=== PATIENT | female | born 1960 | race Caucasian/White ===

== ENCOUNTER 2019-08-21 20:15 | Emergency (ER) | payer OTHER, SELFPAY ==
--- NOTE | ~2019-08-21 | XR_ITS ---
EXAMINATION: XR knee RT 3V EXAM DATE: 08/21/2019 21:05 INDICATION: No known recent injury provided at this time. Pain of the right knee. Crepitus. TECHNIQUE: Three projections of the right knee. Comparison is made to prior examination from 6. FINDINGS: No evidence osteochondral defect or joint body in the right knee joint. Small sized supr apatellar enthesopathy. There is mild tricompartmental primary osteoarthritis. No joint effusion. Th ere are no acute fractures or dislocations identified. There is no subcutaneous gas. The soft tissu e is unremarkable. There are no radiopaque foreign bodies. Compared to 2016, slight interval progr ession in degenerative changes. IMPRESSION: Mild right knee osteoarthritis. Reviewed, dictated and finalized at location A.
--- NOTE | 2019-08-21 20:32 | ED.LOWEXIN ---
HPI - Extremity Injury (Lower) General Chief Complaint: Extremity Injury, Lower Stated Complaint: r knee pain Time Seen by Provider: 08/21/19 20:43 Source: patient and family Mode of arrival: ambulatory Limitations: no limitations History of Present Illness HPI Narrative: 59-year-old woman comes in today complaining of right knee pain that started about 3:00 p.m. today. She states that she was walking down some steps when she had a grinding sensation, a loud pop and immediate pain of her right knee. She denies falling. Her pain has persisted and she has been unable to bear weight since. She has a history of osteoarthritis of her knees And a history of rheumatoid arthritis. complaint: knee injury Onset (ago): hour(s) (5) Injury: Right: knee Place: home Severity: severe Relieving factors: rest Exacerbating factors: weight bearing Context: walking Associated symptoms: snap/pop sensation Related Data Home Medications Medication Instructions Recorded Confirmed diclofenac sodium 75 mg PO BID 08/21/19 08/21/19 escitalopram oxalate 5 mg PO DAILY 08/21/19 08/21/19 gabapentin 300 mg PO TID 08/21/19 08/21/19 hydroxychloroquine [Plaquenil] 200 mg PO BID 08/21/19 08/21/19 latanoprost 1 drp OPHTHALMIC (EYE) DAILY 08/21/19 08/21/19 lisinopril-hydrochlorothiazide 1 tablet PO DAILY 08/21/19 08/21/19 metformin 1,000 mg PO BID 08/21/19 08/21/19 ranitidine HCl 300 mg PO HS 08/21/19 08/21/19 tramadol 50 mg PO HS 08/21/19 08/21/19 Allergies Allergy/AdvReac Type Severity Reaction Status Date / Time cephalexin [Keflex] Allergy Intermediate Verified 09/11/13 09:57 Cephalosporins Allergy Intermediate Verified 09/11/13 09:57 Review of Systems Constitutional: Constitutional: Denies chills and Denies fever(s) Eyes: Eyes: Denies change in vision and Denies photophobia ENT: Denies dysphagia, Denies nasal congestion and Denies sore throat Cardiovascular: Cardiovascular: Denies chest pain and Denies radiating jaw, neck or arm pain Respiratory: Respiratory: Denies cough and Denies dyspnea Gastrointestinal: Gastrointestinal: Denies abdominal pain, Denies nausea and Denies vomiting Neurologic: Denies vertigo, Denies dizziness, Denies syncope and Denies focal weakness Psychiatric: Psychiatric: Denies anxiety and Denies depression Hematologic/Lymphatic: Hematologic/Lymphatic: Denies easy bleeding and Denies easy bruising Allergic/Immunologic: Allergic/Immunologic: Denies lip swelling and Denies wheezing [facility] Past Medical History Medical History Diverticulitis Fibromyalgia GERD (gastroesophageal reflux disease) Glaucoma Hypertension Osteoarthritis Osteoporosis Rheumatoid arthritis Type 2 diabetes mellitus Surgical History Surgical History History of bladder surgery History of colon resection Social History Social History Smoking status: Never smoker Exam Const: General: healthy appearing and alert Nutritional Appearance: obese Orientation/consciousness: patient oriented x3 Other: moderate acute distress at rest Resp: Effort & Inspection: normal respiratory effort and not labored Auscultation: clear to auscultation bilaterally, no rales, no rhonchi and no wheezes Cardio: Rate: regular rate Rhythm: regular rhythm Heart sounds: no murmurs Skin: General skin exam: normal color, no jaundice and no pallor Rashes: no rashes Neuro: General: patient oriented x3, moves all extremities, no focal motor deficits and CN's II-XI intact bilaterally Extrem: General: no clubbing, cyanosis or edema Other: Perhaps mild effusion on the right knee. There is crepitus even with minor flexion and extension. limited flexion. Normal active extension. tenderness mostly on the medial and lateral anterior joint line. Patient was too tender to fully assess for la
[2019-08-21 20:35] VITALS: BP 138/57; PULSE 80; RESP 18; TEMP 37; O2SAT 95
== END 2019-08-21 21:48 | disposition home or self-care (01) ==
PROVIDERS: Emergency Provider Emergency Medicine; PCP Internal Medicine
DX: S89.91XA Unspecified injury of right lower leg, initial encounter (principal)
CPT/HCPCS: 73562; 99282; 99283

== ENCOUNTER 2019-11-20 14:00 | Outpatient (RCR) | payer OTHER, SELFPAY ==
--- NOTE | 2019-11-20 15:07 | PTOPEVAL ---
Thank you for referring Nancie Montemayor to [facility]. Please review, sign, date and return this plan of care JENSEN. I agree with and certify that the following plan of care is medically necessary. Referring Physician Date Admitting Provider: Attending Provider: Stephan Castillo MD Referring Provider: *PT Outpatient Evaluation Start: 11/20/19 14:10 Freq: Status: Active Protocol: Document 11/20/19 14:15 J (Rec: 11/20/19 14:57 [facility] [id number]) Therapy Assessment Status Assessment Status Assessment Status Evaluation Outpatient Past Medical History Cardiovascular History Hx Hypercholesterolemia Yes Hx Hypertension Yes Gastrointestinal History Hx Bowel Surgery Yes: colon resection Hx Diverticulitis Yes Genitourinary History Hx Bladder Surgery Yes Musculoskeletal History Hx Fibromyalgia Yes Hx Osteoporosis Yes Hx Rheumatoid Arthritis Yes Endocrine History Hx Diabetes Yes Evaluation Information Problem Diagnosis R knee pain Onset 08/31/19 Additional Evaluation Detail LEFS = 95% functionally declined. Subjective Information patient reports she injured Query Text:As Reported By Patient/ her R knee several months ago. Family she reports she stepped off a concrete stoop and injuired her knee. she reports she has had x-rays but has had no mri as of this date due to the covid pandemic. she reports the knee has been getting worse. she reports she had a steriod injection in august, but nothing since then. she reports she has increased swelling and pain. she reports the knee feels unstable. she reports the knee feels like it will slide backwards. she reports she felt a pop when she initially injured to the R knee. she reports the knee will swell from time to time. she reports increased pain with sit to stand transfers, walking, weight bearing, and stairs. Prior Level of Function Comments Additional Prior Level of Function prior to injury, no issues Comments
--- NOTE | 2019-12-27 15:22 | PTOPEVAL ---
Thank you for referring Nancie Montemayor to [facility]. Please review, sign, date and return this plan of care JENSEN. I agree with and certify that the following plan of care is medically necessary. Referring Physician Date Admitting Provider: Attending Provider: Stephan Castillo MD Referring Provider: *PT Outpatient Evaluation Start: 11/20/19 14:10 Freq: Status: Active Protocol: Document 12/27/19 15:11 [facility] (Rec: 12/27/19 15:20 [facility] [id number]) Therapy Assessment Status Assessment Status Assessment Status Discharge Outpatient Past Medical History Cardiovascular History Hx Hypercholesterolemia Yes Hx Hypertension Yes Gastrointestinal History Hx Bowel Surgery Yes: colon resection Hx Diverticulitis Yes Genitourinary History Hx Bladder Surgery Yes Musculoskeletal History Hx Fibromyalgia Yes Hx Osteoporosis Yes Hx Rheumatoid Arthritis Yes Endocrine History Hx Diabetes Yes Evaluation Information Problem Diagnosis R knee pain Additional Evaluation Detail LEFFS = 86% functionally declined Subjective Information patient reports she feels Query Text:As Reported By Patient/ sore again this date, but Family better than she did about a week ago. she reports her pain still fluctuates between a 7- 10/10. she reports she feels like her knee is more swollen and tight. Pain Assessment Timing of Pain Assessment Timing of Pain Assessment Assessment Pain Scale Pain Scale Used Numeric (1 - 10) Self Report Pain Assessment Right Knee(s) Reported Pain Level 7 Pain Description Sharp,Soreness,Tightness Greatest Pain Intensity 10 Pain Score Pain Score 7: Self Report Lower Extremity Range of Motion Knee Range of Motion Right Knee Flexion Range of Motion - Active 100 Knee Flexion Range of Motion - Passive -2 Knee Range of Motion Comments increased pain in the R knee and hip with PROM knee flexion to end rom with paint compensation/body shifting. Lower Extremity Muscle Strength Testing Hip Strength Right Hip Flexion Strength 4- Good - Knee Strength Right Knee Flexion Strength 4- Good - Knee Extension Strength 4 Good Muscle Length Testing Muscle Length Testing Left Hamstring Length 10 Query Text:(90 - 90 Position) Right Hamstring Length 20 Query Text:(90 - 90 Position) Palpati
== END 2019-12-27 17:11 | disposition home or self-care (01) ==
LOC: CHSPT 14:00
PROVIDERS: PCP Internal Medicine; Visit Provider Internal Medicine
DX: M25.561 Pain in right knee (principal)
CPT/HCPCS: 97014; 97016; 97110; 97140; 97161; G0283

== ENCOUNTER 2020-05-27 14:31 | Outpatient (CLI) | payer OTHER, SELFPAY ==
--- NOTE | ~2020-05-27 | MM_ITS ---
EXAMINATION: MM screening [facility] BI w lorrie HISTORY: Screening mammogram TECHNIQUE: Craniocaudal and mediolateral oblique 3-D tomosynthesis images were obtained and synthetic 2-D images were generated. CAD analysis was submitted and interpreted. COMPARISON: 05/23/2019, 02/17/2012, 02/19/2013, 02/21/2014 BREAST PARENCHYMAL COMPOSITION: There are scattered areas of fibroglandular density. FINDINGS: Scattered benign-appearing calcifications are present. There is no evidence of suspicious m ass, calcification, or architectural distortion to suggest malignancy in either breast. There has bee n no suspicious interval change. IMPRESSION: 1. No mammographic evidence of malignancy. 2. Recommend routine screening mammography in one year. BI-RADS Category 2: Benign finding(s). Reviewed, dictated and finalized at location A. STOCK NUTRITION TERRITORY MANAGER
== END 2020-05-27 14:32 | disposition home or self-care (01) ==
LOC: CHSIMG 14:33
PROVIDERS: PCP Internal Medicine; Visit Provider Obstetrics & Gynecology
DX: Z12.31 Encounter for screening mammogram for malignant neoplasm of breast (principal)
CPT/HCPCS: 77063; 77067

== ENCOUNTER 2020-09-02 12:02 | Emergency (ER) | payer OTHER, SELFPAY ==
--- NOTE | ~2020-09-02 | XR_ITS ---
XR hand RT min 3V 09/02/2020 12:41 INDICATION: Right hand pain after trauma. Rheumatoid arthritis. PROCEDURE: 3 views right hand COMPARISON: No prior studies for comparison. FINDINGS: Fracture, dislocation or subluxation is not identified. There is mild polyarticular osteoar thritis. No erosive changes. The soft tissues appear within normal limits. No foreign bodies are inocencio ntified. IMPRESSION: 1: NO ACUTE BONE OR JOINT ABNORMALITY IDENTIFIED. Reviewed, dictated and finalized at location A.
--- NOTE | 2020-09-02 12:29 | ED.UPPEXIN ---
HPI - Extremity Injury (Upper) General Chief Complaint: Extremity Injury, Upper Stated Complaint: hand in car door Time Seen by Provider: 09/02/20 12:25 Source: patient Mode of arrival: ambulatory Limitations: no limitations History of Present Illness HPI narrative: Patient comes in because she says she just closed her hand in the car door. She comes in with right hand elevated. She complains of pain moderately severe, sharp, throbbing, ongoing in right hand. Nothing has made this better. The most severe pain is in her index finger where it seems she had the bulk of the force that hit her hand. complaint: injury to: right Other injuries: none Handedness: right Place: home Severity: moderate Severity scale (1-10): 7 Relieving factors: other (elevation) Associated symptoms: denies other symptoms Treatments prior to arrival: cold therapy Related Data Home Medications Medication Instructions Recorded Confirmed diclofenac sodium 75 mg PO BID 08/21/19 08/21/19 escitalopram oxalate 5 mg PO DAILY 08/21/19 08/21/19 gabapentin 300 mg PO TID 08/21/19 08/21/19 hydroxychloroquine [Plaquenil] 200 mg PO BID 08/21/19 08/21/19 latanoprost 1 drp OPHTHALMIC (EYE) DAILY 08/21/19 08/21/19 lisinopril-hydrochlorothiazide 1 tablet PO DAILY 08/21/19 08/21/19 metformin 1,000 mg PO BID 08/21/19 08/21/19 tramadol 50 mg PO HS 08/21/19 08/21/19 Allergies Allergy/AdvReac Type Severity Reaction Status Date / Time cephalexin [Keflex] Allergy Intermediate Anaphylaxis Verified 09/02/20 13:01 Cephalosporins Allergy Intermediate Anaphylaxis Verified 09/02/20 13:01 Review of Systems Constitutional: Constitutional: Reports no additional constitutional complaints Eyes: Eyes: Reports no additional eye complaints ENT: Reports system reviewed and no additional complaints, except as documented Cardiovascular: Cardiovascular: Reports no additional cardiovascular complaints Respiratory: Respiratory: Reports no additional respiratory complaints Gastrointestinal: Gastrointestinal: Reports no additional gastrointestinal complaints Genitourinary: Genitourinary: Reports no additional female genitourinary complaints Musculoskeletal: Musculoskeletal: Reports no additional musculoskeletal complaints Integumentary/Breasts: Skin/Breast: Reports system reviewed and no additional complaints, except as docu Neurologic: Reports system reviewed and no additional complaints, except as documented Psychiatric: Psychiatric: Reports no additional psychiatric complaints Endocrine: Endocrine: Reports no additional endocrine complaints Hematologic/Lymphatic: Hematologic/Lymphatic: Reports no additional hematologic/lymphatic complaints Allergic/Immunologic: Allergic/Immunologic: Reports no additional allergic/immunologic complaints [facility] Past Medical History Medical History (Updated 09/02/20 @ 12:55 by Juan Carlos Miramontes MD) Diverticulitis Fibromyalgia GERD (gastroesophageal reflux disease) Glaucoma Hypertension Osteoarthritis Osteoporosis Rheumatoid arthritis Type 2 diabetes mellitus Surgical History Surgical History History of bladder surgery History of colon resection Family History Family History (Updated 09/02/20 @ 12:50 by Juan Carlos Miramontes MD) Mother CAD (coronary artery disease) Diabetes mellitus Osteoarthritis Social History Social History (Updated 09/02/20 @ 12:52 by Juan Carlos Miramontes MD) Smoking status: Never smoker Alcohol use details: minimal rare alcohol use Substance use: current Substance use type: marijuana Other substance usage details: says marijuana helps joint pain Gender identity (if verbalized by the patient): Female Exam Const: General: no acute distress HENMT: Head: normal to inspection Ears: external ears normal and TM's normal bilaterally General nose exam: Normal external nose present Face and sinus: normal facial exam Mouth: Yes Normal oral and pa
[2020-09-02 12:44] VITALS: BP 118/78; PULSE 76; RESP 20; TEMP 36.4; O2SAT 99
[2020-09-02 13:18] VITALS: BP 126/67; PULSE 76; RESP 20; TEMP 36.7; O2SAT 97
== END 2020-09-02 13:22 | disposition home or self-care (01) ==
PROVIDERS: Emergency Provider Emergency Medicine; PCP Internal Medicine
DX: M79.641 Pain in right hand (principal)
CPT/HCPCS: 29130; 73130; 99282; 99283

== ENCOUNTER 2020-09-26 10:51 | Outpatient (CLI) | payer OTHER, SELFPAY ==
[2020-09-26 12:01] LABS: SARS-CoV-2 RNA PCR Negative (Negative)
== END 2020-09-26 10:52 | disposition home or self-care (01) ==
LOC: CHSLAB 10:54
PROVIDERS: PCP Internal Medicine; Visit Provider Internal Medicine
DX: Z20.822 Contact with and (suspected) exposure to COVID-19 (principal)
CPT/HCPCS: C9803; U0003; U0005

== ENCOUNTER 2021-04-22 10:07 | Outpatient (CLI) | payer OTHER, SELFPAY ==
--- NOTE | ~2021-04-22 | US_ITS ---
EXAMINATION: US pelvic complete w TV DATE: 04/22/2021 10:39 INDICATION: Hirsutism. Hysterectomy in 1990. Comparison:No prior studies for comparison. TECHNIQUE: Multiple transabdominal and endovaginal sonographic images of the pelvis performed. FINDINGS: The uterus is surgically absent. The ovaries are not visualized, although no adnexal masses or fluid collections are identified. There is no free fluid in the pelvis. There are no abnormal masses seen on either side. IMPRESSION: 1. Unremarkable pelvic ultrasound post hysterectomy. Reviewed, dictated and finalized at location A. ING ADMINISTRATOR
== END 2021-04-22 10:08 | disposition home or self-care (01) ==
LOC: CHSIMG 10:09
PROVIDERS: PCP Internal Medicine; Visit Provider Obstetrics & Gynecology
DX: L68.0 Hirsutism (principal); Z01.419 Encounter for gynecological examination (general) (routine) without abnormal findings
CPT/HCPCS: 76830; 76856

== ENCOUNTER 2021-05-29 11:57 | Outpatient (CLI) | payer OTHER, SELFPAY ==
--- NOTE | ~2021-05-29 | MM_ITS ---
EXAMINATION: MM screening [facility] BI w lorrie HISTORY: Screening TECHNIQUE: Craniocaudal and mediolateral oblique 3-D tomosynthesis images were obtained and synthetic 2-D images were generated. CAD analysis was submitted and interpreted. COMPARISON: Comparison to multiple prior studies sequentially, with oldest reviewed study dated 03/14. BREAST PARENCHYMAL COMPOSITION: There are scattered areas of fibroglandular density. FINDINGS: There is no evidence of suspicious mass, calcification, or architectural distortion to sugg est malignancy in either breast. There has been no suspicious interval change. IMPRESSION: 1. No mammographic evidence of malignancy. 2. Recommend routine screening mammography in one year. BI-RADS Category 1: Negative Reviewed, dictated and finalized at location A. R D INTERN
== END 2021-05-29 11:58 | disposition home or self-care (01) ==
LOC: CHSIMG 11:57
PROVIDERS: PCP Internal Medicine; Visit Provider Obstetrics & Gynecology
DX: Z12.31 Encounter for screening mammogram for malignant neoplasm of breast (principal)
CPT/HCPCS: 77063; 77067

== ENCOUNTER 2021-07-01 12:33 | Outpatient (CLI) | payer OTHER, SELFPAY ==
--- NOTE | 2021-07-01 12:45 | PC.NURSE ---
Pt to room 201 amb. A&Ox3. Complains of feeling tired. NPC noted. Antibody infusion plan of care explained. Pt read and signed the consent form. Has no questions or concerns. Oriented to room. Call bassett in reach. Reminded to call with needs.
[2021-07-01] MEDS: FAMOTIDINE 20 MG TABLET PO (12:58)
[2021-07-01] MEDS: ACETAMINOPHEN 325 MG TABLET 650 MG PO (12:58)
[2021-07-01] MEDS: diphenhydrAMINE HCl CAP 25 MG CAPSULE PO (12:58)
[2021-07-01 13:12] VITALS: BP 125/76; PULSE 71; RESP 20; TEMP 36.4; O2SAT 98
--- NOTE | 2021-07-01 13:57 | PC.NURSE ---
Pt has no questions or complaints. Discharged to home ambulatory with daughter.
== END 2021-07-01 12:34 | disposition home or self-care (01) ==
LOC: CHSTREATRM 12:37
PROVIDERS: PCP Internal Medicine; Visit Provider Internal Medicine
DX: U07.1 COVID-19 (principal); I10 Essential (primary) hypertension; E11.9 Type 2 diabetes mellitus without complications
CPT/HCPCS: A9270; M0245; Q0247

== ENCOUNTER 2021-09-23 12:30 | Emergency (ER) | payer OTHER, SELFPAY ==
--- NOTE | ~2021-09-23 | CT_ITS ---
CT OF pelvis EXAMINATION: CT pelvis wo con DATE: 09/23/2021 13:54 INDICATION: Fall, right hip pain TECHNIQUE: Computed tomography (CT) of the right hip was performed without intravenous contrast. Auto mated exposure control and iterative reconstruction technique were employed. The dose-length product was 896.96 mGy-cm. COMPARISON: CT abdomen and pelvis 08/25/2017 FINDINGS: Limitations: None Bones: Degenerative disc and facet disease in the lower lumbar spine. Bilateral degenerative change i n the SI joints, right greater than left. Mild bilateral hip osteoarthritis. Soft Tissues:Fat-containing midline ventral abdominal hernia. Uncomplicated appearing rectosigmoid no fracture or dislocation. No lytic or blastic lesion. Uterus is likely surgically absent. Fluid: No significant fluid within the joint capsule or surrounding bursal spaces. IMPRESSION: No acute fracture or dislocation in the pelvis. Reviewed, dictated and finalized at location K.
--- NOTE | ~2021-09-23 | XR_ITS ---
EXAMINATION: XR ankle RT min 3V DATE: 09/23/2021 13:57 INDICATION: Right ankle pain. Fall. TECHNIQUE: 4 views of right ankle were obtained. COMPARISON: None. FINDINGS: Bone alignment is normal. There is heterotopic ossification distal to medial malleolus. The re is mild midfoot osteoarthritis. There are enthesophytes at the posterior and plantar aspects of ca lcaneal tuberosity. Ankle soft tissue swelling is noted. IMPRESSION: 1. Heterotopic ossification distal to medial malleolus, which may be a chronic finding or less likely an acute avulsion fracture. 2. Mild midfoot osteoarthritis. Reviewed, dictated and finalized at location A.
--- NOTE | ~2021-09-23 | CT_ITS ---
EXAMINATION: CT brain wo con, CT cervical spine wo con EXAM DATE: 09/23/2021 13:55 (accession [id number]), 09/23/2021 13:53 (accession [id number]) INDICATION: Fall today, head injury/ lump to RT forehead. TECHNIQUE: Spiral CT of the head was performed without contrast. Axial, coronal and sagittal images were reviewed. Spiral CT of the cervical spine was performed without contrast. Axial images were rev iewed. Coronal and sagittal reformatted images were also reviewed. The dose-length product (DLP) fo r this examination was 605.33 (accession [id number]), 607.58 (accession [id number]) mGy-cm. The exposure was tailored according to patient size, and iterative reconstruction (ASIR) was used as additional dose reduction technique. There is no prior study for comparison. FINDINGS: HEAD CT: There is no acute intraparenchymal hemorrhage. No evidence of intraparenchymal brain mass l esion. No evidence of acute infarction. There is mild periventricular and subcortical hypodensity, n onspecific but probably related to small vessel ischemic disease. There is mild prominence of the s ulci and ventricles related to cerebral atrophy. There is no mass effect or midline shift. There i s no obstructive hydrocephalus suspected. There are no extra-axial collections. There are no acute calvarial fractures. Patient has had bilateral ocular lens surgery. Soft tissue is unremarkable. M ild bilateral ethmoid and left maxillary sinus mucoperiosteal thickening. CERVICAL CT: There is no evidence of acute cervical fracture. The odontoid process is intact. Pre-d ens space is normal. Prevertebral soft tissue is normal. There are no soft tissue abnormalities inocencio ntified. There is no disc space widening or traumatic vertebral body subluxation suspected. There is mild reversal of the normal cervical lordosis which may be positional or spasm. Moderate to severe disc disease at C5-6 and 6-7, moderate at the C4-5 and C7-T1 levels. There is moderate to severe cerv ical arthropathy. A detailed level by level evaluation of spondylosis can be added as addendum if req uested. IMPRESSION: 1. No acute intracranial findings or cervical fracture. 2. Mild age-related to cranial findings. 3. Reversal of cervical lordosis. 4. Moderate to severe cervical spondylosis. Reviewed, dictated and finalized at location B. IMPRESSION: 1. No acute intracranial findings or cervical fracture. 2. Mild age-related to cranial findings. 3. Reversal of cervical lordosis. 4. Moderate to severe cervical spondylosis.
--- NOTE | ~2021-09-23 | XR_ITS ---
EXAMINATION: XR knee RT 3V DATE: 09/23/2021 13:57 INDICATION: Right knee pain. Fall. TECHNIQUE: 3 views of right knee were obtained. COMPARISON: Right knee radiographs 08/21/2019 FINDINGS: Bone alignment is normal. No fracture. There is moderate osteoarthritis of medial and lagun[place] lofemoral compartments and mild osteoarthritis of lateral compartment. No knee joint effusion. IMPRESSION: 1. Moderate right knee osteoarthritis. Reviewed, dictated and finalized at location A.
[2021-09-23 12:40] VITALS: BP 155/79; PULSE 90; RESP 18; TEMP 36.5; O2SAT 97
--- NOTE | 2021-09-23 12:47 | ECG_ITS ---
Measurements Intervals [place] Rate: 73 P: 59 AL: 160 QRS: 29 QRSD: 92 T: 29 QT: 377 QTc: 416 Interpretive Statements SINUS RHYTHM NORMAL ECG NO PREVIOUS ECG AVAILABLE FOR COMPARISON Electronically Signed On 09-23-2021 15:41:32 CDT by Carter Alvarez M.D.
[2021-09-23 13:15] LABS: Basophils Absolute Auto 0.07 K/mm3 (0.00-0.10); Basophils Percent Auto 0.8 % (0.0-1.0); Eosinophils Absolute Auto 0.28 K/mm3 (0.02-0.50); Hematocrit 36.8 % (35.0-49.0); Hemoglobin 11.5 g/dL (12.0-15.0); Immature Granulocyte Absolute 0.11 K/mm3 (0.00-0.00); Immature Granulocyte Percent A 1.2 % (0.0-0.0); Lymphocytes Absolute Auto 1.39 K/mm3 (1.10-4.50); Lymphocytes Percent Auto 14.9 % (18.0-42.0); Mean Corpuscular HGB Conc 31.3 g/dL (32.0-36.0); Mean Corpuscular Hemoglobin 28.6 pg (27.0-31.0); Mean Corpuscular Volume 91.5 fL (78.0-102.0); Mean Platelet Volume 9.8 fl (9.2-11.8); Monocytes Absolute Auto 0.52 K/mm3 (0.10-0.90); Monocytes Percent Auto 5.6 % (2.0-11.0); Neutrophils Percent Auto 74.5 % (50.0-70.0); Platelet Count Result 289 K/mm3 (150-420); Red Blood Count 4.02 M/mm3 (4.20-5.40); Red Cell Distribution Width 13.9 % (11.6-14.4); White Blood Count 9.3 K/mm3 (4.8-10.8)
[2021-09-23 13:24] LABS: Add Urine Microscopic? YES; Appearance Urine Clear (Clear); Bilirubin Urine Negative (Negative); Blood Urine Negative (Negative); Color Urine Light Yellow (Yellow); Glucose Urine UA Trace (Negative); Ketones Urine Negative (Negative); Leukocyte Esterase Ur Negative (Negative); Nitrate Urine Negative (Negative); Protein Urine Negative (Negative); Urobilinogen Urine 0.2 mg/dL (0.2-1.0)
[2021-09-23 13:29] LABS: RBC Urine 0-2 /hpf (0-2); Squamous Epithelial Cell Urine Rare /hpf (Few); WBC Urine 0-3 /hpf (0-3)
[2021-09-23 13:30] LABS: Bacteria Urine None seen /hpf
[2021-09-23 13:31] LABS: Alanine Aminotransferase 25 U/L (14-59); Albumin Level 3.2 g/dL (3.4-5.0); Alkaline Phosphatase 79 U/L (46-116); Anion Gap 8 mmol/L (8-16); Aspartate Amino Transferase 16 U/L (15-37); Bilirubin,Total 0.3 mg/dL (0.00-1.00); Blood Urea Nitrogen 17 mg/dL (7-18); Calcium 8.8 mg/dL (8.5-10.1); Carbon Dioxide 27 mmol/L (21-32); Chloride 102 mmol/L (98-108); Estimated Glomerular Filt Rate 60; Glucose 209 mg/dL (70-99); Osmolality Calculated 291 mOsm/kg (285-295); Potassium 4.4 mmol/L (3.5-5.1); Sodium 137 mmol/L (136-145); Total Protein 6.9 g/dL (6.4-8.2)
[2021-09-23] MEDS: KETOROLAC (*BKC) 60 MG/2 ML VIAL IM (14:06)
--- NOTE | 2021-09-23 14:38 | ED.FALL ---
HPI - Fall General Chief Complaint: Fall Stated Complaint: Head pain/knee pain/Ankle pain Time Seen by Provider: 09/23/21 12:32 Source: patient and RN notes reviewed Mode of arrival: ambulatory Limitations: no limitations History of Present Illness complaint: fall Onset (ago): hour(s) (1) Fall from: standing Place fall occurred: street Loss of consciousness: none Prolonged down time: no Symptoms prior to fall: none Context: tripped/slipped Location of injury: head and pelvis Related Data Home Medications Medication Instructions Recorded Confirmed diclofenac sodium 75 mg PO BID 08/21/19 09/23/21 gabapentin 300 mg PO BID 08/21/19 09/23/21 hydroxychloroquine [Plaquenil] 200 mg PO BID 08/21/19 09/23/21 latanoprost 1 drp OPHTHALMIC (EYE) DAILY 08/21/19 09/23/21 lisinopril-hydrochlorothiazide 1 tablet PO DAILY 08/21/19 09/23/21 metformin 500 mg PO BID 08/21/19 09/23/21 tramadol 50 mg PO TID 08/21/19 09/23/21 citalopram 20 mg PO DAILY 09/23/21 09/23/21 glimepiride 1 mg PO BID 09/23/21 09/23/21 timolol maleate 5 drp EACH EYE BID 09/23/21 09/23/21 Allergies Allergy/AdvReac Type Severity Reaction Status Date / Time cephalexin [Keflex] Allergy Intermediate Anaphylaxis Verified 09/02/20 13:01 Cephalosporins Allergy Intermediate Anaphylaxis Verified 09/02/20 13:01 Review of Systems Review of Systems: All systems reviewed & are unremarkable except as noted in HPI and below PMFSH Past Medical History Medical History Diverticulitis Fall Fibromyalgia GERD (gastroesophageal reflux disease) Glaucoma Head injury Hypertension Osteoarthritis Osteoporosis Rheumatoid arthritis Type 2 diabetes mellitus Surgical History Surgical History History of bladder surgery History of colon resection Family History Family History Mother CAD (coronary artery disease) Diabetes mellitus Osteoarthritis Social History Social History Smoking status: Never smoker Alcohol use details: minimal rare alcohol use Substance use: current Substance use type: marijuana Other substance usage details: says marijuana helps joint pain Gender identity (if verbalized by the patient): Female Exam Const: General: no acute distress Nutritional Appearance: obese Orientation/consciousness: patient oriented x3 Limitations: no limitations HENMT: Head: normal to inspection Ears: external ears normal, TM's normal bilaterally and EAC's normal General nose exam: Normal external nose present and Normal nares present Face and sinus: normal facial exam and sinuses nontender Mouth: Yes moist mucous membranes Other: minimal right forehead hematoma. Eyes: Conjunctivae: conjunctivae normal Pupils: Equal, round and reactive pupils present EOM: EOMs intact bilaterally Neck: Neck: normal visual inspection and no lymphadenopathy Chest: Chest palpation & inspection: normal inspection of the chest Resp: Effort & Inspection: normal respiratory effort Auscultation: clear to auscultation bilaterally Cardio: Rate: regular rate Rhythm: regular rhythm GI: GI Palp: Yes Soft to palpation and No Tenderness to palpation present (GI) Auscultation: normal bowel sounds : General: Yes bladder normal to palpation and Yes no CVA tenderness External Female Exam: normal external appearance Back/Spine/Pelvis: Back: no CVA tenderness Skin: General skin exam: normal color Neuro: General: patient oriented x3, moves all extremities, no meningeal signs, no focal motor deficits and CN's II-XI intact bilaterally Extrem: General: no pedal edema Other: Minimal lateral tenderness right knee. Minimally tender anterior right ankle, with no acute abnormality of right malleoli or calcaneus. no acute joint abnormality. Psych: Appearan
[2021-09-23 15:14] VITALS: BP 129/74; PULSE 76; RESP 20; TEMP 37.1; O2SAT 97
== END 2021-09-23 15:23 | disposition home or self-care (01) ==
PROVIDERS: Emergency Provider Emergency Medicine; PCP Internal Medicine
DX: S09.90XA Unspecified injury of head, initial encounter (principal); S80.01XA Contusion of right knee, initial encounter; S93.401A Sprain of unspecified ligament of right ankle, initial encounter; W19.XXXA Unspecified fall, initial encounter
CPT/HCPCS: 36415; 70450; 72125; 72192; 73562; 73610; 80053; 81001; 84484; 85025; 93005; 96372; 99284; J1885

== ENCOUNTER 2021-11-24 11:05 | Outpatient (RCR) | payer OTHER, SELFPAY ==
--- NOTE | 2021-11-25 07:18 | PTOPEVAL ---
Thank you for referring Nancie Montemayor to [facility].? The patient is scheduled to be seen for therapy? __2_x/week for 10 visits. Please review, sign, date and return this plan of care JENSEN. I agree with and certify that the following plan of care is medically necessary. Referring Physician Date Admitting Provider: Attending Provider: Stephan Castillo MD Referring Provider: *PT Outpatient Evaluation Start: 11/24/21 11:17 Freq: Status: Active Protocol: Document 11/24/21 11:17 KALYAN (Rec: 11/24/21 11:41 KALYAN [id number]) Therapy Assessment Status Assessment Status Assessment Status Evaluation Outpatient Past Medical History Cardiovascular History Hx Hypercholesterolemia Yes Hx Hypertension Yes Gastrointestinal History Hx Bowel Surgery Yes: colon resection Hx Diverticulitis Yes Genitourinary History Hx Bladder Surgery Yes Musculoskeletal History Hx Fibromyalgia Yes Hx Osteoporosis Yes Hx Rheumatoid Arthritis Yes Endocrine History Hx Diabetes Yes Reproductive History Hx Post Menopausal Yes Evaluation Information Problem Diagnosis neck pain Onset 09/11/21 Subjective Information Pt. reports that she had a Query Text:As Reported By Patient/ fall in September hitting concrete Family . She reports pain began following the fall. She reports that she hit her head on the ground. She underwent CT and xray which were negative. She reports she is currently expereincing headaches and pain in the neck with turning her head to the right. She describes pain on the right upper trap. She states that the pain is note constant and mostly with turning the head. She states that she gets little lights in her vision on occassion. Pt. reports that she has increased pain and stiffness while driving and cannot look over the right shoulder. She states that her neck pain will wake her at night. She reports that her goal for therapy is to decrease her neck shan
== END 2022-02-22 23:59 | disposition home or self-care (01) ==
LOC: CHSPT 11:05
PROVIDERS: PCP Internal Medicine; Visit Provider Internal Medicine
DX: M54.2 Cervicalgia (principal); M25.561 Pain in right knee
CPT/HCPCS: 97014; 97110; 97112; 97140; 97161; G0283

== ENCOUNTER 2022-01-25 19:40 | Outpatient (CLI) | payer OTHER, SELFPAY ==
--- NOTE | 2022-02-10 11:59 | WPDSLEEPSTUD ---
Sleep Study Date of Study: 01/25/22 Ordering Provider: Kedar Caruso APRN Interpreting Physician: Lucy Rivera MD Sleep Study Type: CPAP Titration Height: 1.57 m Weight: 125.645 kg Body Mass Index: 50.6 Neck Circumference (inches): 18 Regina: 18 Reason for Sleep Study obstructive sleep apnea, needs a titration Sleep History Nancie Montemayor is a 61 year-old female who has a diagnosis of obstructive sleep apnea has been on CPAP. She frequently awakens from sleep feeling short of breath. She frequently awakens at night with heartburn symptoms, belching or coughing. She constantly snores loudly enough that others complain about it. She frequently has trouble sleeping with a cold. She frequently wakes up gasping for breath at night. She constantly is breathing problems at night observed by others and she constantly sweats excessively at night. She frequently notices her heart pounding or beating irregularly at night. She frequently falls asleep during the day, involuntarily, and rarely also falls asleep while driving. She occasionally falls asleep while exerting physical effort. She does not have loss of muscle tone with strong emotion. She does not feel paralyzed on waking or falling asleep. She constantly has vivid dreamlike scenes on waking or falling asleep. She does not feel afraid to go to sleep. She rarely has nightmares. She constantly remembers her dreams. She constantly has racing thoughts. She occasionally feels sad or depressed. She frequently has anxiety. She occasionally has muscular tension. She occasionally notices parts of her body jerking. She does not kick at night. She denies crawling and aching feelings in her legs. She constantly has leg pain during the night. She occasionally has morning jaw pain. She does not grind her teeth during sleep. She constantly is bothered by pain during the day, awakened by pain at night, and she constantly wakes up feeling stiff in the morning with sore or achy muscles and pain in the neck and spine. She has occasional insomnia, memory problems, fatigue and headaches. Normal bedtime is 10:00 p.m. falling asleep within 10 minutes. She typically wakes up 2-3 times at night to go to the bathroom and get a drink of water. She is able to return to sleep usually within a few minutes. She wakes up between 2 and 4:00 a.m.. She may go back to sleep for a while. Her weekend schedule is similar, however she goes to bed a little later between 11 and 12:00 p.m.. She estimates usually getting between 6 and 8 hours of sleep at night. She sometimes takes naps in the afternoon or evening. A short nap is not refreshing. She is drowsy in the morning for 2 hours or longer. She feels better in the afternoon compared to other times of day. Habits: Never smoked tobacco. Coffee 1 cup a day. No alcohol or recreational drugs. [facility] Past Medical History Medical History (Updated 02/10/22 @ 12:23 by Lucy Rivera MD) Diverticulitis Fall Fibromyalgia GERD (gastroesophageal reflux disease) Glaucoma Head injury Hypertension Obstructive sleep apnea Osteoarthritis Osteoporosis Rheumatoid arthritis Type 2 diabetes mellitus Surgical History Surgical History History of bladder surgery History of colon resection Family History Family History Mother CAD (coronary artery disease) Diabetes mellitus Osteoarthritis Social History Social History Smoking status: Never smoker Alcohol use details: minimal rare alcohol use Substance use: current Substance use type: marijuana Other substance usage details: says marijuana helps joint pain Additional occupation/education comments: Disabled Gender identity (if verbalized by the patient): Female Medications Home Medications Medication Instructions Rec
[2022-02-10 12:28] VITALS: BMI 50.6
== END 2022-01-26 06:00 | disposition home or self-care (01) ==
PROVIDERS: PCP Internal Medicine; Visit Provider Nurse Practitioner Family
DX: G47.33 Obstructive sleep apnea (adult) (pediatric) (principal)
CPT/HCPCS: 95811

== ENCOUNTER 2022-02-11 18:23 | Emergency (ER) | payer OTHER, SELFPAY ==
--- NOTE | ~2022-02-11 | XR_ITS ---
EXAMINATION: XR knee LT 2V DATE: 02/11/2022 19:02 INDICATION: Left knee injury TECHNIQUE: Weight bearing anteroposterior and Orellana, sunrise, and flexed lateral views of both kn ees were obtained. COMPARISON: AP and lateral views of the left knee were obtained. FINDINGS: Alignment is normal. No fracture. Joint spaces are normal although joint space narrowing can be under estimated on nonweightbearing imaging. Enthesophyte and marginal osteophyte at the proximal pole of t he patella. Osteophyte at the medial epicondylar region consistent with a Álvaro-Stieda lesion pickard ch with a chronic medial collateral ligament sprain. Soft tissues are unremarkable. No knee joint eff usion. IMPRESSION: 1. No left knee joint effusion or acute osseous abnormality. 2. Álvaro-Stieda lesion with ossified the region of the insertion of the proximal medial collater al ligament consistent with sequela of chronic sprain. Reviewed, dictated and finalized at location A. IMPRESSION: 1. No left knee joint effusion or acute osseous abnormality. 2. Álvaro-Stieda lesion with ossified the region of the insertion of the pr oximal medial collateral ligament consistent with sequela of chronic sprain.
[2022-02-11 18:25] VITALS: BP 117/60; PULSE 82; RESP 18; TEMP 36.4; O2SAT 97
[2022-02-11] MEDS: KETOROLAC (*BKC) 60 MG/2 ML VIAL IM (18:52)
--- NOTE | 2022-02-11 19:00 | ED.EXTPRO ---
HPI - Extremity Problem General Chief complaint: Extremity Problem,Nontraumatic Stated complaint: L knee injury Time Seen by Provider: 02/11/22 18:26 Source: patient Mode of arrival: wheelchair Limitations: no limitations History of Present Illness HPI Narrative: this is a 61-year-old female that presents with some left posterior knee pain after she apparently was walking patient heard a pop and had lysed to her posterior mid knee in the popliteal area, has decreased range of motion secondary to pain there is no calf pain or swelling no redness no known injury. MD Complaint: extremity pain Onset (ago): hour(s) Pain Consistency: constant Location: left Severity scale (1-10): 6 Quality: aching Radiation: none Relieving factors: cold therapy and immobilization Exacerbating factors: range of motion, weight bearing, walking and palpation Associated symptoms: denies other symptoms Related Data Home Medications Medication Instructions Recorded Confirmed diclofenac sodium 75 mg 75 mg PO BID 08/21/19 12/24/21 tablet,delayed release gabapentin 300 mg capsule 300 mg PO BID 08/21/19 12/24/21 hydroxychloroquine 200 mg tablet 200 mg PO BID 08/21/19 12/24/21 (Plaquenil) latanoprost 0.005 % eye drops 1 drp ophthalmic (eye) DAILY 08/21/19 12/24/21 lisinopril 20 1 tablet PO DAILY 08/21/19 12/24/21 mg-hydrochlorothiazide 25 mg tablet metformin 500 mg tablet,extended 500 mg PO BID 08/21/19 12/24/21 release 24 hr citalopram 20 mg tablet 20 mg PO DAILY 09/23/21 12/24/21 timolol maleate 0.5 % eye drops 5 drp EACH EYE BID 09/23/21 12/24/21 Allergies Allergy/AdvReac Type Severity Reaction Status Date / Time cephalexin [Keflex] Allergy Intermediate Anaphylaxis Verified 02/11/22 18:45 Cephalosporins Allergy Intermediate Anaphylaxis Verified 02/11/22 18:45 Review of Systems Review of Systems: All systems reviewed & are unremarkable except as noted in HPI and below PMFSH Past Medical History Medical History Diverticulitis Fall Fibromyalgia GERD (gastroesophageal reflux disease) Glaucoma Head injury Hypertension Obstructive sleep apnea Osteoarthritis Osteoporosis Rheumatoid arthritis Type 2 diabetes mellitus Surgical History Surgical History History of bladder surgery History of colon resection Family History Family History Mother CAD (coronary artery disease) Diabetes mellitus Osteoarthritis Social History Social History Smoking status: Never smoker Alcohol use details: minimal rare alcohol use Substance use: current Substance use type: marijuana Other substance usage details: says marijuana helps joint pain Additional occupation/education comments: Disabled Gender identity (if verbalized by the patient): Female Exam Const: General: healthy appearing and no acute distress Limitations: no limitations HENMT: Head: normal to inspection Face and sinus: normal facial exam Mouth: Yes Normal oral and palatal mucosa present Eyes: Conjunctivae: conjunctivae normal Neck: Neck: normal visual inspection Chest: Chest palpation & inspection: normal inspection of the chest Resp: Effort & Inspection: normal respiratory effort Cardio: Rate: regular rate Rhythm: regular rhythm GI: GI Palp: Yes Soft to palpation Back/Spine/Pelvis: Back: no CVA tenderness Skin: General skin exam: normal color Rashes: no rashes Wounds: no wounds Neuro: General: patient oriented x3, moves all extremities, no meningeal signs and no focal motor deficits Extrem: Other: Posterior knee pain with palpation with no calf pain or tenderness no swollen calf no warmth. The patient heard a pop and earlier today and rates her pain about a 6/10 with movement and walking. Psych: Mental Status: mental
[2022-02-11 19:48] VITALS: BP 128/72; PULSE 88; RESP 16; O2SAT 97
== END 2022-02-11 19:49 | disposition home or self-care (01) ==
PROVIDERS: Emergency Provider Emergency Medicine; PCP Internal Medicine
DX: S86.812A Strain of other muscle(s) and tendon(s) at lower leg level, left leg, initial encounter (principal)
CPT/HCPCS: 73560; 96372; 99283; J1885

== ENCOUNTER 2022-04-07 14:30 | Outpatient (RCR) | payer OTHER, SELFPAY | END 2022-04-12 23:59 | disposition home or self-care (01) | LOC: ANHDMC 14:30 | PROVIDERS: PCP Internal Medicine; Referring Provider Internal Medicine; Visit Provider Internal Medicine | DX: E13.65 Other specified diabetes mellitus with hyperglycemia (principal); Z71.89 Other specified counseling | CPT/HCPCS: 99199; G0108; G0109 ==

== ENCOUNTER 2022-04-14 14:30 | Outpatient (CLI) | payer OTHER, SELFPAY ==
--- NOTE | ~2022-04-14 | MR_ITS ---
EXAMINATION: MR knee LT wo con DATE: 04/14/2022 15:44 INDICATION: Left knee pain TECHNIQUE: Magnetic resonance imaging (MRI) of the left knee was performed without intravenous contra st. Sequences included coronal PD-weighted FSE, coronal PD-weighted FS FSE, sagittal T2-weighted FSE , sagittal PD-weighted FS FSE and axial PD weighted fat saturated FSE. COMPARISON: None. FINDINGS: Medial compartment: Complex tear at the posterior horn of the medial meniscus which includes a full-thickness avulsion at the posterior root and a longitudinal horizontal tear plane extending to the superior articular surf charlee more medially in the posterior horn. Partial-thickness cartilage loss with chondral surface regul arity along the anterior to central weightbearing medial femoral condyle. Additional partial thicknes s cartilage loss with smooth chondral surface along the medial tibial plateau. Lateral compartment: Lateral meniscus is normal. Articular cartilage is normal. Patellofemoral compartment: Full-thickness chondral ulceration extending along the caudal half of the medial trochlea, trochlear groove and inferomedial aspect of the lateral trochlea with prominent underlying cortical irregularit y with mild scattered edema-like signal change. Partial-thickness patellar cartilage loss with deep c hondral fissuring without degenerative subchondral changes at the medial and lateral patellar facets and intervening apical ridge. Ligaments and tendons: Anterior and posterior cruciate ligaments are normal. Partial-thickness tear involving the anterior m argin of the proximal medial collateral ligament with the proximal tear margin approximately 1.5 cm f rom the femoral origin without surrounding edema suggesting this is chronic. The fibular collateral l igament complex is normal. The extensor mechanism is normal. Tendinopathy without discrete tear at th e direct head of the distal semimembranosus tendon. The visualized medial and lateral hamstring tendo ns as well as the iliotibial band are otherwise normal. Fluid: Small left knee joint effusion at the suprapatellar pouch. No loose osteochondral bodies identified. Osseous/other: There is linear low signal underlying the articular surface of the medial tibial plateau but without surrounding edema which suggests a chronic fracture which could be due to impaction related to discre te injury or stress fracture related to altered weight distribution resulting from the meniscal tear. No other fractures or pathologic marrow replacing process. Intraosseous ganglion cyst at the proxima l tibia which appears to arise at the avulsed posterior horn of the medial meniscus. Geographic regio ns of red marrow reexpansion the distal femoral metaphysis. IMPRESSION: 1. Complex tear at the posterior root of the medial meniscus which includes complete avulsion of the posterior root. 2. Mild medial and patellofemoral osteoarthritis, lateral with prominent high-grade trochlear chondro malacia. 3. Chronic partial tear of the proximal medial collateral ligament. 4. Residual chronic subarticular fracture line underlying the medial tibial plateau which could be re lated to either a discrete prior impaction fracture or stress fracture related to altered weight is p atient resulting from the meniscal tear. 5. Small left knee joint effusion. Reviewed, dictated and finalized at location B. IMPRESSION: 1. Complex tear at the posterior root of the medial meniscus which includes com plete avulsion of the posterior root. 2. Mild medial and patellofemoral osteoarthritis, lateral with prominent high-g rade trochlear chondromalacia. 3. Chronic partial tear of the proximal medial collateral ligament. 4. Residual chronic subarticular fracture line
== END 2022-04-14 14:31 | disposition home or self-care (01) ==
PROVIDERS: PCP Internal Medicine; Visit Provider Orthopaedic Surgery
DX: S83.232A Complex tear of medial meniscus, current injury, left knee, initial encounter (principal); X58.XXXA Exposure to other specified factors, initial encounter; M17.12 Unilateral primary osteoarthritis, left knee; M25.462 Effusion, left knee
CPT/HCPCS: 73721

== ENCOUNTER 2022-05-31 12:21 | Outpatient (CLI) | payer OTHER, SELFPAY ==
--- NOTE | ~2022-05-31 | MM_ITS ---
EXAMINATION: MM screening kelin BI w lorrie HISTORY: Screening TECHNIQUE: Craniocaudal and mediolateral oblique 3-D tomosynthesis images were obtained and synthetic 2-D images were generated. CAD analysis was submitted and interpreted. COMPARISON: Comparison to multiple prior studies sequentially, with oldest reviewed study dated 02/21. BREAST PARENCHYMAL COMPOSITION: There are scattered areas of fibroglandular density. FINDINGS: There is no evidence of suspicious mass, calcification, or architectural distortion to sugg est malignancy in either breast. There has been no suspicious interval change. IMPRESSION: 1. No mammographic evidence of malignancy. 2. Recommend routine screening mammography in one year. BI-RADS Category 1: Negative Reviewed, dictated and finalized at location A. E AIDE
== END 2022-05-31 12:22 | disposition home or self-care (01) ==
LOC: CHSIMG 12:24
PROVIDERS: PCP Internal Medicine; Visit Provider Obstetrics & Gynecology
DX: Z12.31 Encounter for screening mammogram for malignant neoplasm of breast (principal)
CPT/HCPCS: 77063; 77067

== ENCOUNTER 2023-01-24 14:54 | Outpatient (CLI) | payer OTHER, SELFPAY ==
--- NOTE | ~2023-01-24 | US_ITS ---
EXAMINATION: US pelvic complete w TV DATE: 01/24/2023 15:23 INDICATION: Right lower quadrant abdominal pain. TECHNIQUE: Multiple transabdominal and transvaginal sonographic images of the pelvis were obtained. COMPARISON: Ultrasound 04/22/2021, CT pelvis 09/23/2021 FINDINGS: TRANSABDOMINAL ULTRASOUND: The uterus is absent. There is no free fluid in the pelvis. TRANSVAGINAL ULTRASOUND: The ovaries are not visualized. IMPRESSION: 1. Ovaries not visualized. 2. Absent uterus. Reviewed, dictated and finalized at location A.
== END 2023-01-24 14:55 | disposition home or self-care (01) ==
LOC: CHSIMG 14:56
PROVIDERS: PCP Internal Medicine; Visit Provider Obstetrics & Gynecology
DX: R10.31 Right lower quadrant pain (principal); Z80.41 Family history of malignant neoplasm of ovary; Z90.710 Acquired absence of both cervix and uterus
CPT/HCPCS: 76830; 76856

== ENCOUNTER 2023-04-11 09:15 | Outpatient (CLI) | payer OTHER, SELFPAY ==
--- NOTE | ~2023-04-11 | CT_ITS ---
EXAMINATION: CT abdomen pelvis w con DATE: 04/11/2023 10:51 INDICATION: Right lower quadrant abdominal pain, nausea. Leukocytosis. TECHNIQUE: Computed tomography (CT) of the abdomen and pelvis was performed with 100 CC Omnipaque 350 intravenous contrast. Automated exposure control and iterative reconstruction technique were employe d. Exam dose: 1339.13 mGy-cm total exam DLP. COMPARISON: 01/24/2023 pelvic ultrasound examination 09/23/2021 CT abdomen pelvis 08/25/2017 CT abdomen pelvis FINDINGS: Minimal focal infiltrate, atelectasis or fibrotic change in the anteromedial base of the ri ght lower lobe. No consolidation at the lung bases. Normal heart size. No pericardial or pleural effu janine. Small sliding hiatal hernia. Approximately 5 mm hypoattenuating lesion of the right hepatic lobe, too small to definitively charac terize. The liver is otherwise unremarkable. No gallbladder wall thickening or pericholecystic fluid or fat stranding. Normal caliber of the bile ducts and pancreatic duct. No pancreatic mass lesion or calcification. Normal splenic size. Normal morphology of the adrenal glands. Occasional small renal probable cysts. No urinary tract calculus or hydroureteronephrosis. The urinary bladder is unremarkable. Status post hysterectomy. There is a suture line at the sigmoid colon. Mild colonic diverticulosis; no CT evidence of diverticu litis. There is a prominent amount of fecal material within the colon. Some irregular low-attenuation density is noted in the cecum adjacent to the ileocecal valve, likely stool, but cecal neoplasm is not definitively excluded. If the patient has not had recent colon ofelia p, consider barium enema or colonoscopy. There is atherosclerotic calcification but normal caliber of the abdominal aorta. No intraperitoneal or retroperitoneal or pelvic mass lesion or adenopathy or ascites is detected. Up to approximately 7 cm vertical, 6.8 cm transverse 3.7 cm AP ventral fat-containing abdominal wall hernia; hernia mouth measures approximately 2.5 cm vertical and transverse dimension. Degenerative changes of the thoracic and lumbar spine. No suspicious osteolytic or osteoblastic lesio ns are noted. IMPRESSION: Small sliding hiatal hernia Occasional small probable right renal cysts Status post hysterectomy Postoperative change of sigmoid colon Mild colonic diverticulosis; no evidence of diverticulitis Prominent amount of fecal material in the colon; cecal neoplasm cannot be excluded. The patient has n ot had recent colon workup, consider barium enema or colonoscopy 7 x 6.8 x 3.7 cm fat-containing ventral abdominal wall hernia Reviewed, dictated and finalized at Location A. Reviewed, dictated and finalized at location B. IMPRESSION: Small sliding hiatal hernia Occasional small probable right renal cysts Status post hysterectomy Postoperative change of sigmoid colon Mild colonic diverticulosis; no evidence of diverticulitis Prominent amount of fecal material in the colon; cecal neoplasm cannot be exclu ded. The patient has not had recent colon workup, consider barium enema or colo noscopy 7 x 6.8 x 3.7 cm fat-containing ventral abdominal wall hernia
[2023-04-11 10:17] LABS: Estimated Glomerular Filt Rate > 60
== END 2023-04-11 09:16 | disposition home or self-care (01) ==
LOC: CHSIMG 09:17
PROVIDERS: PCP Internal Medicine; Visit Provider Internal Medicine
DX: R10.31 Right lower quadrant pain (principal); D72.829 Elevated white blood cell count, unspecified; K44.9 Diaphragmatic hernia without obstruction or gangrene; Z90.710 Acquired absence of both cervix and uterus; Z98.890 Other specified postprocedural states; K57.90 Diverticulosis of intestine, part unspecified, without perforation or abscess without bleeding; K43.9 Ventral hernia without obstruction or gangrene
CPT/HCPCS: 74177; Q9967

== ENCOUNTER 2023-04-13 11:00 | Outpatient (RCR) | payer OTHER, SELFPAY ==
[2023-01-24 11:15] LABS: Glucose Point of Care 113 mg/dl (65-105)
[2023-01-24 12:12] LABS: Glucose Point of Care 99 mg/dl (65-105)
[2023-01-28 11:10] LABS: Glucose Point of Care 99 mg/dl (65-105)
[2023-01-28 12:04] LABS: Glucose Point of Care 101 mg/dl (65-105)
[2023-02-04 11:11] LABS: Glucose Point of Care 165 mg/dl (65-105)
== END 2023-04-13 13:45 | disposition home or self-care (01) ==
PROVIDERS: PCP Internal Medicine
DX: Z95.5 Presence of coronary angioplasty implant and graft (principal); I27.20 Pulmonary hypertension, unspecified; I10 Essential (primary) hypertension; I50.1 Left ventricular failure, unspecified
CPT/HCPCS: 93798

== ENCOUNTER 2023-05-21 08:12 | Outpatient (CLI) | payer OTHER, SELFPAY ==
[2023-05-21 09:13] LABS: GGT 205 U/L (5-55)
[2023-05-25 21:35] LABS: Alkaline Phosphatase 240 U/L (37-153); Macrohepatic Isoenzymes 17 % (<=0)
== END 2023-05-21 08:13 | disposition home or self-care (01) ==
LOC: CHSLAB 08:13
PROVIDERS: PCP Internal Medicine; Visit Provider Nurse Practitioner Family
DX: R74.8 Abnormal levels of other serum enzymes (principal)
CPT/HCPCS: 36415; 82977; 84075; 84080

== ENCOUNTER 2023-05-23 09:51 | Outpatient (CLI) | payer OTHER, SELFPAY ==
[2023-05-23 12:04] LABS: Cholesterol 105 mg/dL (0-200); HDL Direct 70 mg/dL (40-60); LDL Cholesterol Calculated 23 mg/dL (<130); Triglycerides 58 mg/dL (0-150)
== END 2023-05-23 09:52 | disposition home or self-care (01) ==
PROVIDERS: PCP Internal Medicine
DX: E78.5 Hyperlipidemia, unspecified (principal)
CPT/HCPCS: 36415; 80061

== ENCOUNTER 2023-06-01 13:01 | Outpatient (CLI) | payer OTHER, SELFPAY ==
--- NOTE | ~2023-06-01 | MM_ITS ---
EXAMINATION: MM screening kelin BI w lorrie HISTORY: Screening mammogram TECHNIQUE: Craniocaudal and mediolateral oblique 3-D tomosynthesis images were obtained and synthetic 2-D images were generated. CAD analysis was submitted and interpreted. COMPARISON: 05/31/2022, 05/29/2021, 05/27/2020 bilateral screening mammogram examinations BREAST PARENCHYMAL COMPOSITION: There are scattered areas of fibroglandular density. FINDINGS: There are scattered bilateral benign calcifications. There is no evidence of suspicious mas s, calcification, or architectural distortion to suggest malignancy in either breast. There has been no suspicious interval change. IMPRESSION: 1. No mammographic evidence of malignancy. 2. Recommend routine screening mammography in one year. BI-RADS Category 2: Benign finding(s). Reviewed, dictated and finalized at location A. SPEC
== END 2023-06-01 13:02 | disposition home or self-care (01) ==
LOC: CHSIMG 13:03
PROVIDERS: PCP Internal Medicine; Visit Provider Obstetrics & Gynecology
DX: Z12.31 Encounter for screening mammogram for malignant neoplasm of breast (principal)
CPT/HCPCS: 77063; 77067

== ENCOUNTER 2024-01-19 08:24 | Outpatient (CLI) | payer OTHER, SELFPAY ==
[2024-01-19 08:35] LABS: Mean Corpuscular HGB Conc 30.8 g/dL (32-36); Mean Corpuscular Hemoglobin 26.4 pg (27.0-31.0); Mean Corpuscular Volume 85.7 fL (78.0-102.0); Mean Platelet Volume 10.1 fl (9.2-11.8); Platelet Count Result 291 K/mm3 (150-420); Red Blood Count 4.55 M/mm3 (4.20-5.40); Red Cell Distribution Width 15.3 % (11.6-14.4); White Blood Count 9.3 K/mm3 (4.8-10.8)
[2024-01-19 08:45] LABS: Hemoglobin A1C 6.4 % (<5.7)
[2024-01-19 09:33] LABS: Albumin Level 3.3 g/dL (3.4-5.0); Blood Urea Nitrogen 17 mg/dL (7-18); Calcium 8.7 mg/dL (8.5-10.1); Chloride 104 mmol/L (98-108); Estimated Glomerular Filt Rate > 60; Glucose 88 mg/dL (70-99); Osmolality Calculated 294 mOsm/kg (285-295); Potassium 4.7 mmol/L (3.5-5.1); Sodium 142 mmol/L (136-145)
[2024-01-19 09:48] LABS: Alanine Aminotransferase 23 U/L (14-59); Alkaline Phosphatase 95 U/L (46-116); Anion Gap 11 mmol/L (4-12); Aspartate Amino Transferase 20 U/L (15-37); Bilirubin,Total 0.5 mg/dL (0.00-1.00); Carbon Dioxide 27 mmol/L (21-32); Total Protein 6.5 g/dL (6.4-8.2)
[2024-01-19 10:16] LABS: CRP < 0.5 mg/dL (0.0-0.9)
== END 2024-01-19 08:25 | disposition home or self-care (01) ==
LOC: CHSLAB 08:26
PROVIDERS: PCP Internal Medicine; Visit Provider Internal Medicine
DX: E11.9 Type 2 diabetes mellitus without complications (principal); M06.9 Rheumatoid arthritis, unspecified
CPT/HCPCS: 36415; 80053; 83036; 85027; 86140

== ENCOUNTER 2024-05-30 10:14 | Outpatient (CLI) | payer OTHER, SELFPAY ==
[2024-05-30 10:31] LABS: Basophils Percent Auto 0.9 % (0.0-1.0); Eosinophils Absolute Auto 0.55 K/mm3 (0.02-0.50); Eosinophils Percent Auto 5.2 % (1.0-6.0); Hematocrit 39.4 % (35.0-49.0); Hemoglobin 12.3 g/dL (12.0-15.0); Immature Granulocyte Absolute 0.06 K/mm3 (0.00-0.00); Immature Granulocyte Percent A 0.6 % (0.0-0.0); Lymphocytes Absolute Auto 2.32 K/mm3 (1.10-4.50); Mean Corpuscular HGB Conc 31.2 g/dL (32-36); Mean Corpuscular Volume 86.4 fL (78.0-102.0); Mean Platelet Volume 9.6 fl (9.2-11.8); Monocytes Absolute Auto 0.92 K/mm3 (0.10-0.90); Monocytes Percent Auto 8.7 % (2.0-11.0); Neutrophils Absolute Auto 6.59 K/mm3 (1.70-7.20); Neutrophils Percent Auto 62.6 % (50.0-70.0); Platelet Count Result 287 K/mm3 (150-420); Red Blood Count 4.56 M/mm3 (4.20-5.40); Red Cell Distribution Width 14.6 % (11.6-14.4); White Blood Count 10.5 K/mm3 (4.8-10.8)
[2024-05-30 12:31] LABS: Creatinine Urine 131.03 mg/dL (40-278); MALB Creatinine Ratio 15.3 mg/g (0-30); Microalbumin Urine Random 20.1 mg/L
[2024-05-30 16:40] LABS: Alanine Aminotransferase 28 U/L (14-59); Albumin Level 3.4 g/dL (3.4-5.0); Alkaline Phosphatase 85 U/L (46-116); Anion Gap 13 mmol/L (4-12); Aspartate Amino Transferase 16 U/L (15-37); Bilirubin,Total 0.4 mg/dL (0.00-1.00); Blood Urea Nitrogen 24 mg/dL (7-18); Calcium 9.3 mg/dL (8.5-10.1); Carbon Dioxide 24 mmol/L (21-32); Chloride 104 mmol/L (98-108); Cholesterol 133 mg/dL (0-200); Estimated Glomerular Filt Rate > 60; Glucose 77 mg/dL (70-99); HDL Direct 82 mg/dL (40-60); LDL Cholesterol Calculated 30 mg/dL (<130); Osmolality Calculated 295 mOsm/kg (285-295); Potassium 4.9 mmol/L (3.5-5.1); Sodium 141 mmol/L (136-145); Thyroid Stimulating Hormone 2.94 uIU/mL (0.36-3.74); Total Protein 6.6 g/dL (6.4-8.2); Triglycerides 105 mg/dL (0-150)
== END 2024-05-30 10:15 | disposition home or self-care (01) ==
PROVIDERS: PCP Internal Medicine; Visit Provider Internal Medicine
DX: E11.9 Type 2 diabetes mellitus without complications (principal); I25.10 Atherosclerotic heart disease of native coronary artery without angina pectoris; M06.9 Rheumatoid arthritis, unspecified
CPT/HCPCS: 36415; 80053; 80061; 82043; 83036; 84443; 85025

== ENCOUNTER 2024-06-04 13:55 | Outpatient (CLI) | payer OTHER, SELFPAY ==
--- NOTE | ~2024-06-04 | MM_ITS ---
EXAMINATION: MM screening [facility] BI w lorrie HISTORY: Screening TECHNIQUE: Craniocaudal and mediolateral oblique 3-D tomosynthesis images were obtained and synthetic 2-D images were generated. CAD analysis was submitted and interpreted. COMPARISON: 06/01/2023 and dating back to 05/29/2021 BREAST PARENCHYMAL COMPOSITION: There are scattered areas of fibroglandular density. FINDINGS: Bulky and punctate calcifications detected bilaterally, stable and benign in appearance Otherwise stable parenchymal pattern without suspicious microcalcifications, architectural distortion , discrete masses or significant asymmetry. IMPRESSION: 1. No mammographic evidence of malignancy. 2. Recommend routine screening mammography in one year. BI-RADS Category 2: Benign finding(s). Reviewed, dictated and finalized at location A. OPERATOR
== END 2024-06-04 13:56 | disposition home or self-care (01) ==
PROVIDERS: PCP Internal Medicine; Visit Provider Obstetrics & Gynecology
DX: Z12.31 Encounter for screening mammogram for malignant neoplasm of breast (principal)
CPT/HCPCS: 77063; 77067

== ENCOUNTER 2025-02-21 08:06 | Outpatient (CLI) | payer OTHER, SELFPAY ==
[2025-02-21 09:01] LABS: Alanine Aminotransferase 16 U/L (6-35); Albumin Level 4.0 g/dL (3.5-5.1); Alkaline Phosphatase 77 U/L (38-126); Anion Gap 8 mmol/L (4-12); Aspartate Amino Transferase 25 U/L (14-36); Bilirubin,Total 0.7 mg/dL (0.2-1.3); Blood Urea Nitrogen 22 mg/dL (7-17); Calcium 10.0 mg/dL (8.4-10.2); Carbon Dioxide 26 mmol/L (22-30); Chloride 105 mmol/L (98-107); Cholesterol 118 mg/dL (0-200); Estimated Glomerular Filt Rate > 60; Glucose 91 mg/dL (65-110); HDL Direct 88 mg/dL; Osmolality Calculated 291 mOsm/kg (285-295); Potassium 5.0 mmol/L (3.4-5.0); Sodium 139 mmol/L (137-145); Total Protein 6.5 g/dL (6.3-8.2); Triglycerides 108 mg/dL (<150)
[2025-02-21 09:02] LABS: Hemoglobin A1C 6.0 % (<5.7)
== END 2025-02-21 08:07 | disposition home or self-care (01) ==
LOC: CHSLAB 08:09
PROVIDERS: PCP Internal Medicine; Visit Provider Internal Medicine
DX: E11.9 Type 2 diabetes mellitus without complications (principal); E78.5 Hyperlipidemia, unspecified
CPT/HCPCS: 36415; 80053; 80061; 83036

== ENCOUNTER 2025-05-18 07:57 | Outpatient (CLI) | payer OTHER, SELFPAY ==
[2025-05-18 08:10] LABS: Hematocrit 40.0 % (35.0-49.0); Hemoglobin 12.3 g/dL (12.0-15.0); Mean Corpuscular HGB Conc 30.8 g/dL (32-36); Mean Corpuscular Hemoglobin 27.0 pg (27.0-31.0); Mean Corpuscular Volume 87.7 fL (78.0-102.0); Platelet Count Result 271 K/mm3 (150-420); Red Blood Count 4.56 M/mm3 (4.20-5.40); White Blood Count 8.8 K/mm3 (4.8-10.8)
[2025-05-18 08:13] LABS: Add Urine Microscopic? YES; Appearance Urine Clear (Clear); Glucose Urine UA Negative (Negative); Leukocyte Esterase Ur Trace (Negative); Nitrate Urine Positive (Negative); Specific Grav Ur >= 1.030 (1.010-1.020)
[2025-05-18 09:03] LABS: Alanine Aminotransferase 22 U/L (6-35); Albumin Level 4.1 g/dL (3.5-5.1); Alkaline Phosphatase 84 U/L (38-126); Anion Gap 10 mmol/L (4-12); Aspartate Amino Transferase 29 U/L (14-36); Bilirubin,Total 0.6 mg/dL (0.2-1.3); Blood Urea Nitrogen 20 mg/dL (7-17); Calcium 9.5 mg/dL (8.4-10.2); Carbon Dioxide 23 mmol/L (22-30); Chloride 106 mmol/L (98-107); Cholesterol 114 mg/dL (0-200); Estimated Glomerular Filt Rate > 60; Glucose 90 mg/dL (65-110); HDL Direct 86 mg/dL; Osmolality Calculated 290 mOsm/kg (285-295); Potassium 4.5 mmol/L (3.4-5.0); Sodium 139 mmol/L (137-145); Total Protein 6.5 g/dL (6.3-8.2); Triglycerides 121 mg/dL (<150)
[2025-05-18 09:33] LABS: Thyroid Stimulating Hormone 4.860 uIU/mL (0.465-4.680)
[2025-05-18 10:00] LABS: Hemoglobin A1C 6.1 % (<5.7)
== END 2025-05-18 07:58 | disposition home or self-care (01) ==
LOC: CHSLAB 08:00
PROVIDERS: PCP Internal Medicine; Visit Provider Internal Medicine
DX: E11.9 Type 2 diabetes mellitus without complications (principal); I25.10 Atherosclerotic heart disease of native coronary artery without angina pectoris; G89.29 Other chronic pain
CPT/HCPCS: 36415; 80053; 80061; 81001; 83036; 84443; 85027